=== PATIENT | female | born 1995 | race Caucasian/White ===

== ENCOUNTER → 2023-09-11 | Outpatient (CLI) | payer OTHER, SELFPAY ==
[2023-09-12 22:07] LABS: Chlamydia By Nucleic Acid AMP Negative (Negative); Gonococcus By Nucleic Acid AMP Negative (Negative)
[2023-09-13 23:02] LABS: HPV Reflexed? NOT INDICATED
== END | disposition home or self-care (01) ==
LOC: LABSPEC 11:31
PROVIDERS: Referring Provider Registered Nurse; Visit Provider Registered Nurse
DX: Z34.90 Encounter for supervision of normal pregnancy, unspecified, unspecified trimester (principal)
CPT/HCPCS: 87086; 87088; 87491; 87591; 88175; G0145

== ENCOUNTER → 2023-09-20 | Outpatient (CLI) | payer OTHER, SELFPAY ==
[2023-09-20 12:12] LABS: Absolute Lymphocyte Count 2.64 X10^3/uL (0.83-4.51); Absolute Neutrophil Count 6.4 X10^3/uL (2.0-7.7); Basophil# 0.04 X10^3/uL; Basophil% 0.4 % (0-1); Eosinophil# 0.05 X10^3/uL; Eosinophils% 0.5 % (0-5); Hematocrit 37.8 % (37-47); Hemoglobin 13.1 g/dL (12.0-15.0); Lymphocyte # 2.64 X10^3/ul (0.83-4.51); Lymphocyte % 26.6 % (19-41); Mean Corp Hgb Conc 34.7 g/dL (32-36); Mean Corpuscular Hgb 33.6 pg (27.0-32.0); Mean Corpuscular Volume 96.9 fL (81-99); Mean Platelet Vol. 12.2 fl (6.2-12.0); Monocyte# 0.73 X10^3/uL; Monocyte% 7.4 % (0-10); NRBC Flagged by Analyzer 0 % (0-5); Neutrophil # 6.44 X10^3/uL (2.7-7.7); Neutrophil % 64.8 % (47-70); Platelet Count 210 K/mm3 (150-450); RBC Distribution Width CV 12.8 % (11.6-14.6); RBC Distribution Width SD 45.2 fl (35.1-43.9); White Blood Count 9.9 K/mm3 (4.4-11.0)
[2023-09-20 12:44] LABS: NATERA MAILED SPECIMEN
[2023-09-20 13:34] LABS: HIV - WCH Non-Reactive (Nonreactive); Hepatitis B Surface Antigen Non-Reactive (Nonreactive); Hepatitis C Antibody Non-Reactive (Nonreactive); Rubella IgG Reactive (Nonreactive); Syphilis Antibodies Non-reactive
[2023-09-21 09:17] LABS: Hemoglobin A1c 4.8 % (3.8-5.6)
== END | disposition home or self-care (01) ==
LOC: LAB 11:39
PROVIDERS: Referring Provider Registered Nurse; Visit Provider Registered Nurse
DX: Z34.90 Encounter for supervision of normal pregnancy, unspecified, unspecified trimester (principal)
CPT/HCPCS: 36415; 83036; 85025; 86703; 86762; 86780; 86803; 86850; 86900; 86901; 87340

== ENCOUNTER → 2023-11-26 | Outpatient (CLI) | payer OTHER, SELFPAY ==
--- OUTSIDE RECORDS SUMMARY | 2023-11-26 20:17 | XMS RPT_ITS | CCD ---
Author Name Unknown Address [address] [place] [address] Organization [facility] Care Team Providers Care Manager Front Office Name Role Phone NO, PHYSICIAN Primary Care Unavailable Katty Zuñiga Unavailable Kalen Denton Unavailable Unavailable Corrie, Ms. Kalen Lala Attending Christiano Zuñiga, Dr. Katty Santos Primary Care Christiano Zuñiga, Dr. Katty Santos Primary Care Christiano Denton, Ms. Kalen Lala Attending Christiano Denton, Ms. Kalen Lala Attending Christiano Zuñiga, Dr. Katty Santos Primary Care Kenji Membreno Primary Care Physician Kenji Merlos Attending Unavailable Kenij Merlos Attending Unavailable Kenji Merlos Attending Unavailable MANUELITO BARNARD Referring Unavailable MANUELITO BARNARD Attending Unavailable Medications Current Medications Medication Drug Class(es) Dates Sig (Normalized) Sig (Original) benzoyl peroxide 0.05 mg/mg / clindamycin 0.01 mg/mg topical gel (2 sources) Lincosamide Antibacterial Start: 11-26-2022 benzoyl peroxide-clindamyc in topical gel 1 alicia, Topical, BID, 25 gram, Refill(s) 0, [id number], 165, cm, 11/26/22 13:44:00 EST, Height/Length Dosing, 81.5, kg, 11/26/22 13:44:00 EST, Weight Dosing Start Date: 11/26/22 Status: Ordered oseltamivir 75 mg oral capsule (1 source) Neuraminidase Inhibitor Start: 09-18-2022 End: 09-22-2022 take 1 capsule by mouth twice daily oseltamivir 75 mg oral capsule ; 1 cap(s) orally 2 times a day Quantity: 10 Refills: 0 Ordered: 18-Sep-2022 Kalen Denton Start: 18-Sep-2022 End: 22-Sep-2022 Generic Substitution Allowed Comments: Check with your doctor before becoming .Finish all this medication unless otherwise directed by prescriber. Completed/Discontinued Medications Medication Drug Class(es) Dates Sig (Normalized) Sig (Original) [id number] 200 actuat albuterol 0.09 mg/actuat metered dose inhaler (1 source) beta2-Adrenergic Agonist Start: 06-04-2022 take 2 puff(s) by inhalation twice daily as needed for cough albuterol 90 mcg/inh inhalation aerosol ; 2 puff(s) inhaled 2 times a day as needed for cough Quantity: 8.5 Refills: 0 Ordered: 04-Jun-2022 Kalen Denton Start: 04-Jun-2022 Generic Substitution Allowed Comments: For inhalation only.It is very important that you take or use this exactly as directed. Do not skip doses or discontinue unless directed by your doctor.Obtain medical advice before taking any non-prescription drugs as some may affect the action of this medication.Shake well before use. Problems Active Problems Problem Classification Problem Date Documented Da te Episodic/Chronic Anxiety disorders (5 sources) Anxiety disorder; Translations: [Anxiety disorder, unspecified] Onset: 10-18-2022 Chronic Headache; including migraine (4 sources) Headache; including migraine; Translations: [Headache, unspecified] Onset: 06-04-2022 06-04-2022 Past or Other Problems Problem Classification Problem Date Documented Da te Episodic/Chronic Other ear and sense organ disorders (1 source) Otalgia, left ear; Translations: [Otalgia, left ear] Onset: 09-22-2021 Episodic Other upper respiratory disease (2 sources) Nasal congestion; Translations: [Nasal congestion] Onset: 06-04-2022 Episodic Unclassified (3 sources) fx left wrist 02-11-2013 Results Test Name Value Interpretation Reference Range Facil ity Vital Signs Date Time Vital Sign Value Performing Clinician Facility 11-26-2022 13:38-0500 Blood Pressure Location Kenji Merlos [facility] 11-26-2022 13:38-0500 Diastolic blood pressure 68 mm[Hg] Kenji Gudimella [facility] 11-26-2022 13:38-0500 Heart rate 81 /min Kenji Gudimella [facility] 11-26-2022 13:38-0500 Systolic blood pressure 112 mm[Hg] Kenji Gudimella [facility] 10-18-2022 08:40-0500 Blood Pressure Location Kenji Gudimella [facility] 10-18-2022 08:40-0500 Diastolic blood pressure 70 mm[Hg] Kenji Gudimella [facility] 10-18-2022 08:40-0500 Heart rate 65 /min Kenji Gudimella [facility] 10-18-2022 08:40-0500 SaO2% (BldA) [Mass fraction] 97 % Kenji Gudimella [facility] 10-18-2022 08:40-0500 Systolic blood pressure 102 mm[Hg] Kenji Gudimella [facility] 09-18-2022 11:53-0500 Body height 165 cm Katty Zuñiga Other Phone: [facility] 09-18-2022 11:53-0500 Body temperature 98.96 [degF] Katty Zuñiga Other Phone: [facility] 09-18-2022 11:53-0500 Diastolic blood pressure 73 mm[Hg] Katty Zuñiga Other Phone: [facility] 09-18-2022 11:53-0500 Heart rate 99 /min Katty [place] Other Phone: [facility] 09-18-2022 11:53-0500 Respiratory rate 16 /min Katty [place] Other Phone: [facility] 09-18-2022 11:53-0500 SaO2% (BldA) [Mass fraction] 97 % Katty [place] Other Phone: [facility] 09-18-2022 11:53-0500 Systolic blood pressure 104 mm[Hg] Katty Yogesh Other Phone: [facility] 06-04-2022 17:50-0400 Body height 165 cm Katty [place] Other Phone: [facility] 06-04-2022 17:50-0400 Body temperature 98.6 [degF] Katty [place] Other Phone: [facility] 06-04-2022 17:50-0400 Diastolic blood pressure 77 mm[Hg] Katty [place] Other Phone: [facility] 06-04-2022 17:50-0400 Heart rate 81 /min Katty [place] Other Phone: [facility] 06-04-2022 17:50-0400 SaO2% (BldA) [Mass fraction] 98 % Katty Yogesh Other Phone: [facility] 06-04-2022 17:50-0400 Systolic blood pressure 116 mm[Hg] Katty [place] Other Phone: [facility] 09-22-2021 11:52-0500 Body height 165 cm Katty [place] Other Phone: [facility] 09-22-2021 11:52-0500 Body temperature 98.06 [degF] Katty [place] Other Phone: [facility] 09-22-2021 11:52-0500 Diastolic blood pressure 82 mm[Hg] Kattyalise Zuñiga Other Phone: [facility] 09-22-2021 11:52-0500 Heart rate 74 /min Katty Yogesh Other Phone: [facility] 09-22-2021 11:52-0500 SaO2% (BldA) [Mass fraction] 99 % Katty Yogesh Other Phone: [facility] 09-22-2021 11:52-0500 Systolic blood pressure 117 mm[Hg] Katty [place] Other Phone: [facility] Encounters Encounter Date Encounter Type Care Provider Facility Start: 11-21-2023 End: 11-21-2023 ambulatory [facility] Start: 12-31-2022 End: 01-01-2023 ambulatory Kenji Gudimella Facility:[facility] Start: 12-31-2022 End: 12-31-2022 Patient encounter procedure Kenji Gudimella [facility] Start: 11-26-2022 End: 11-27-2022 ambulatory Kenji Gudimella Facility:[facility] Start: 11-26-2022 End: 11-26-2022 Patient encounter procedure Kenji Gudimella [facility] Start: 10-18-2022 End: 10-19-2022 ambulatory Kenji Gudimella Facility:[facility] Start: 10-18-2022 End: 10-18-2022 Patient encounter procedure Kenji Gudimella [facility] Start: 09-18-2022 End: 09-18-2022 Emergency department patient visit Kalen Denton [facility] Start: 06-04-2022 End: 06-04-2022 Emergency department patient visit Kalen Denton [facility] Start: 09-22-2021 End: 09-22-2021 [facility] Start: 03-31-2020 End: 04-04-2020 Patient encounter procedure PHYSICIAN MY [facility] Procedures Date Procedure Procedure Detail Performing Clinician tubes in ear Kenji Gudimella Immunizations Immunization Date Immunization Notes Care Provider [address] 11-18-2020 SARS-CoV-2 (COVID-19 ) mRNA-1273 vaccine Kenji Gudimella [facility] 10-21-2020 SARS-CoV-2 (COVID-19 ) mRNA-1273 vaccine Kenji Gudimella [facility] 05-20-2017 hepatitis A vaccine, adult dosage Kenji Gudimella [facility] 04-27-2015 hepatitis A vaccine, unspecified formulation Kenji Gudimella [facility] 04-27-2015 meningococcal ACWY vaccine, unspecified formulation Kenji Gudimella [facility] 08-25-2012 tetanus toxoid, reduced diphtheria toxoid, and acellular pertussis vaccine, adsorbed Kenji Gudimella [facility] 06-13-2009 meningococcal ACWY vaccine, unspecified formulation Kenji Gudimella [facility] 06-13-2009 varicella virus vaccine Kenji Gudimella [facility] 05-27-2002 DTaP, unspecified formulation Kenji Gudimella [facility] 05-27-2002 measles, mumps and rubella virus vaccine Kenji Gudimella [facility] 05-27-2002 poliovirus vaccine, unspecified formulation Kenji Gudimella [facility] 02-14-1998 varicella virus vaccine Kenji Gudimella [facility] 01-11-1998 DTaP, unspecified formulation Kenji Gudimella [facility] 01-11-1998 Hib, unspecified formulation Kenji Gudimella [facility] 01-11-1998 measles, mumps and rubella virus vaccine Kenji Gudimella [facility] 07-12-1997 DTaP, unspecified formulation Kenji Gudimella [facility] 07-12-1997 hepatitis B vaccine, pediatric or pediatric/adolescent dosage Kenji Gudimella [facility] 07-12-1997 Hib, unspecified formulation Kenji Gudimella [facility] 02-24-1997 DTaP, unspecified formulation Kenji Gudimella [facility] 02-24-1997 Hib, unspecified formulation Eknji Gudimella [facility] 1996 DTaP, unspecified formulation Kenji Gudimella [facility] 1996 hepatitis B vaccine, pediatric or pediatric/adolescent dosage Kenji Gudimella [facility] 1996 Hib, unspecified formulation Kenji Gudimella [facility] 1996 hepatitis B vaccine, pediatric or pediatric/adolescent dosage Kenji Gudimella [facility] NEGATED: Highlighted row has not occurred!11-26-2022 influenza virus vaccine, unspecified formulation Kenji Gudimella [facility] NEGATED: Highlighted row has not occurred!10-18-2022 influenza virus vaccine, unspecified formulation Kenji Gudimella [facility] Payers Date Payer Category Payer Unknown [id number] 1995 Unknown [id number] 1996 Unknown [id number] 1996 Unknown [id number] 1996 Unknown [id number] 1996 Unknown [id number] 1996 Unknown [id number] 1996 Unknown [id number] 1996 Unknown [id number] Unknown [id number] Unknown [employer] [place] Social History Date Type Detail Facility [facility] Tobacco smoking consumption unknown [facility] Start: 10-18-2022 End: 11-26-2022 Tobacco smoking status Never smoked tobacco (finding) [facility] Tobacco smoking status Never [facility] Sex Assigned At Female [facility] Functional Status Date Assessment Result Facility 11-26-2022 Functional Status N/A [facility] 10-18-2022 Functional Status N/A [facility] Hospital Discharge instructions 11-26-2022 Note Date & Type Note Facility 11-26-2022 Hospital Discharg e instructions Patient Education 11/26/2022 14:42:14 BMI for Adults BMI for Adults Body mass index (BMI) is a number that is calculated from a person's weight and height. BMI may help to estimate how much of a person's weight is composed of fat. BMI can help identify those who may be at higher risk for certain medical problems. How is BMI used with adults? BMI is used as a screening tool to identify possible weight problems. It is used to check whether a person is obese, overweight, healthy weight, or underweight. How is BMI calculated? BMI measures your weight and compares it to your height. This can be done either in [place] ([place] or metric measurements. Note that charts are available to help you find your BMI quickly and easily without having to do these calculations yourself. To calculate your BMI in [place] measurements, your health care provider will: 1.Measure your weight in pounds (lb). 2.Multiply the number of pounds by 703. For example, for a person who weighs 180 lb, multiply that number by 703, which equals 126,540. 3.Measure your height in inches (in). Then multiply that number by itself to get a measurement called inches squared. For example, for a person who is 70 in tall, the inches squared measurement is 70 in x 70 in, which equals 4900 inches squared. 4.Divide the total from Step 2 (number of lb x 703) by the total from Step 3 (inches squared): 126,540 4900 = 25.8. This is your BMI. To calculate your BMI in metric measurements, your health care provider will: 1.Measure your weight in kilograms (kg). 2.Measure your height in meters (m). Then multiply that number by itself to get a measurement called meters squared. For example, for a person who is 1.75 m tall, the meters squared measurement is 1.75 m x 1.75 m, which is equal to 3.1 meters squared. 3.Divide the number of kilograms (your weight) by the meters squared number. In this example: 70 3.1 = 22.6. This is your BMI. How is BMI interpreted? To interpret your results, your health care provider will use BMI charts to identify whether you are underweight, normal weight, overweight, or obese. The following guidelines will be used: Underweight: BMI less than 18.5. Normal weight: BMI between 18.5 and 24.9. Overweight: BMI between 25 and 29.9. Obese: BMI of 30 and above. Please note: Weight includes both fat and muscle, so someone with a muscular build, such as an athlete, may have a BMI that is higher than 24.9. In cases like these, BMI is not an accurate measure of body fat. To determine if excess body fat is the cause of a BMI of 25 or higher, further assessments may need to be done by a health care provider. BMI is usually interpreted in the same way for men and women. Why is BMI a useful tool? BMI is useful in two ways: Identifying a weight problem that may be related to a medical condition, or that may increase the risk for medical problems. Promoting lifestyle and diet changes in order to reach a healthy weight. Summary Body mass index (BMI) is a number that is calculated from a person's weight and height. BMI may help to estimate how much of a person's weight is composed of fat. BMI can help identify those who may be at higher risk for certain medical problems. BMI can be measured using [place] measurements or metric measurements. To interpret your results, your health care provider will use BMI charts to identify whether you are underweight, normal weight, overweight, or obese. This information is not intended to replace advice given to you by your health care provider. Make sure you discuss any questions you have with your health care provider. Document Released: 06/11/2005 Document Revised: 09/12/2018 Document Reviewed: 08/13/2018 [employer] Patient Education 2020 [employer]. [facility] [place] Evaluation + Plan note Note Date & Type Note Facility Evaluation + Plan note Future Appointments Appointment Date:11/26/2022 01:40:00 PM Scheduled Provider:Kenji Merlos MD Location:[facility] Appointment Type: Open [facility] Evaluation + Plan note Note Date & Type Note Facility Evaluation + Plan note Future Appointments Appointment Date:12/31/2022 09:00:00 AM Scheduled Provider:Kenji Merlos MD Location:[facility] Appointment Type:[facility] Hospital course Narrative Note Date & Type Note Facility Hospital course Narrative No data available for this section [facility] Hospital Discharge instructions Note Date & Type Note Facility Hospital Discharge instructions No data available for this section [facility] Progress note Note Date & Type Note Facility Progress note No data available for this section [facility] Summary Purpose Family History No Family History Records FoundNo Family History Records FoundNo Family History Records FoundNo Family History Records FoundNo Family History Records Found Advance Directives No Advanced Directives Records FoundNo Advanced Directives Records FoundNo Advanced Directives Records FoundNo Advanced Directives Records FoundNo Advanced Directives Records Found Additional Source Comments INFORMATION SOURCE (unrecogn ized section and content) DATE CREATED AUTHOR AUTHOR'S ORGANIZ ATION 09/19/2022 [facility] DATE CREATED AUTHOR AUTHOR'S ORGANIZ ATION 09/19/2022 [facility] DATE CREATED AUTHOR AUTHOR'S ORGANIZ ATION 01/01/2023 [facility] DATE CREATED AUTHOR AUTHOR'S ORGANIZ ATION 11/23/2023 [facility] <item><item><item> Privacy Markings (unrecogniz ed section and content) Section Author: Maricruz Block PROHIBITION ON REDISCLOSURE OF CONFIDENTIAL INFORMATION This notice accompanies a disclosure of information concerning a client made to you with the consent of such client. Section Author: Maricruz Block PROHIBITION ON REDISCLOSURE OF CONFIDENTIAL INFORMATION This notice accompanies a disclosure of information concerning a client made to you with the consent of such client. Section Author: Maricruz Block PROHIBITION ON REDISCLOSURE OF CONFIDENTIAL INFORMATION This notice accompanies a disclosure of information concerning a client made to you with the consent of such client. Patient Care team informatio n (unrecognized section and content) Personnel Name: Kenji Merlos MD Address: Address: [address] [place] [address] Personnel Name: Kenji Merlos MD Address: Address: [address] [place] [address] Personnel Name: Kenji Merlos MD Address: Address: [address] [place] [address] FOR RECORDS PERTAINING TO PATIENTS WHO ARE OR HAVE BEEN ENROLLED IN A CHEMICAL DEPENDENCY/SUBSTANCEABUSE PROGRAM, SOME INFORMATION MAY BE OMITTED. This clinical summary was aggregated from multiple sources. Caution should be exercised in using it in the provision of clinical care. This summary normalizes information from multiple sources, and as a consequence, information in this document may materially change the coding, format and clinical context of patient data. In addition, data may be omitted in some cases. CLINICAL DECISIONS SHOULD BE BASED ON THE PRIMARY CLINICAL RECORDS. [facility] [employer] [facility]. provides no warranty or guarantee of the accuracy or completeness of information in this document.
== END | disposition home or self-care (01) ==
PROVIDERS: Referring Provider Obstetrics & Gynecology; Visit Provider Obstetrics & Gynecology
DX: Z36.9 Encounter for antenatal screening, unspecified (principal)
CPT/HCPCS: 36415

== ENCOUNTER 2024-01-15 15:03 | Outpatient (CLI) | payer OTHER, SELFPAY ==
[2024-01-15 15:34] LABS: Absolute Lymphocyte Count 2.55 X10^3/uL (0.83-4.51); Absolute Neutrophil Count 8.3 X10^3/uL (2.0-7.7); Basophil# 0.05 X10^3/uL; Basophil% 0.4 % (0-1); Eosinophil# 0.07 X10^3/uL; Eosinophils% 0.6 % (0-5); Hematocrit 35.1 % (37-47); Hemoglobin 11.9 g/dL (12.0-15.0); Lymphocyte # 2.55 X10^3/ul (0.83-4.51); Lymphocyte % 21.2 % (19-41); Mean Corp Hgb Conc 33.9 g/dL (32-36); Mean Corpuscular Hgb 32.8 pg (27.0-32.0); Mean Corpuscular Volume 96.7 fL (81-99); Mean Platelet Vol. 11.8 fl (6.2-12.0); Monocyte# 0.99 X10^3/uL; Monocyte% 8.2 % (0-10); NRBC Flagged by Analyzer 0 % (0-5); Neutrophil % 68.9 % (47-70); Platelet Count 207 K/mm3 (150-450); RBC Distribution Width CV 12.5 % (11.6-14.6); RBC Distribution Width SD 44.3 fl (35.1-43.9); Red Blood Count 3.63 M/mm3 (4.2-5.4); White Blood Count 12.1 K/mm3 (4.4-11.0)
[2024-01-15 16:02] LABS: Glucose Challenge Gest 1H 50g 104 mg/dL (70-140)
[2024-01-15 16:33] LABS: HIV - WCH Non-Reactive (Nonreactive); Syphilis Antibodies Non-reactive
== END 2024-01-15 23:59 | disposition home or self-care (01) ==
PROVIDERS: Referring Provider Obstetrics & Gynecology; Visit Provider Obstetrics & Gynecology
DX: O09.90 Supervision of high risk pregnancy, unspecified, unspecified trimester (principal); Z13.1 Encounter for screening for diabetes mellitus; Z3A.00 Weeks of gestation of pregnancy not specified
CPT/HCPCS: 36415; 82950; 85025; 86703; 86780

== ENCOUNTER 2024-03-14 06:38 | Inpatient (IN) | payer OTHER, SELFPAY ==
[2024-03-14] VITALS (26 sets, daily range): BP systolic 71–117; BP diastolic 57–68; PULSE 53–76; RESP 12–18; TEMP 36.2–37.1; O2SAT 91–100; BMI 35.5
--- NOTE | 2024-03-14 06:44 | HP.PCM.OB_ITS ---
HPI - General General Date of Admission: 03/14/24 HPI Narrative MIKI RUCKER, is a 28 F who presents with contractions and spotting, upon admisison she was found to have a category II-III tracing with intermittent lates absent to minimal variability no accelerations or scalp stimulation. Maternal Data Information ELLEN Calculator Estimated Delivery Date Method Current WG Current Estimate 04/11/24 LMP (Certain) 36w 0d PFSH PFSH Home Medications ?Medication ?Instructions ?Recorded ?Last Taken ?Type multivit-min no.71-iron fum 28 1 cap PO 08/30/23 03/13/24 08:32 History mg-folate no.1 1 mg-dha 300 mg 1 cap capsule (PNV-[place]) sertraline 25 mg tablet (Zoloft) 25 mg PO DAILY #30 tabs 02/03/24 Unknown Rx clindamycin phosphate 1 % topical 1 applic topical DAILY PRN 02/11/24 Unknown History gel choline 600 mg tablet mg PO 03/14/24 03/13/24 08:33 History 600 mg Allergy/AdvReac Type Severity Reaction Status Date / Time No Known Allergies Allergy Verified 03/14/24 06:31 Family History Mother , initial dx 45. returned at 50 Breast cancer, Onset Age: 45 genetic testing was negative Father Diabetes Hypertension Surgical History [place] teeth extracted Social History adopted: No household members: spouse current occupational status: employed current occupation: Teacher pets and animals: Yes pets and animals: dog(s) history of recent travel: Yes ([place], [place]) out of country: Yes sexually active: Yes Smoking Status: Never smoker alcohol intake: current alcohol intake frequency: holidays/special occasions only details: Not while substance use type: does not use diet: other well-balanced diet: daily or most days caffeine: No eating out: 1-3 times/week during the past year weight has: remained stable what type of physical activity do you participate in: walking and weight training frequency: 3-4 times per week duration: 30-45 minutes/day rose mary/jehovah's witness: Gnosticist seatbelt use: always do you feel safe at home: Yes additional social history: Solo- teacher History 1 Elective abortions Hx Para 0 Spontaneous abortions Hx # Term Pregnancies Ectopic pregnancies Hx # Pregnancies Multiple births # of living children Visit Details Expected Delivery Route/Plan Labor Preferences- CB/BF classes: enc labor support person: Solo labor intervention preferences: [] pain management options preferred: epidural ok if she requests. cut cord/dad catch: no : yes PP control planned: discussed discussed possible routes of delivery and associated risks: [] special requests: [] Plans Covid status: [] Flu vaccine: no Tdap vaccine: given Rhogam: na LARC form signed: yes movement and labor precautions reviewed. Problem list reviewed and updated with the most current plan of care details and appropriate orders placed. Relevant counseling for the gestational age provided. Continue routine care and follow up unless otherwise noted in visit notes/problem list details OB Flowsheet Initial Weight: Not Recorded Date -?-?-?-?-?-?-?-?-?-?-?-?- EGA Weight BP Urine Prot -?-?-?-?-?-?-?-?-?-?-?-?- Glucose FHR FuHt Pres Dilation -?-?-?-?-?-?-?-?-?-?-?-?- Effaced St Visit Note 09/11/23 -?-?-?-?-?-?-?-?-?-?-?-?- 9w 4d 190 lb 113/74 -?-?-?-?-?-?-?-?-?-?-?-?- 171 -?-?-?--?-?-?-?-?-?-?-?-?- LC- crl con with LMP. desires genetic screening. 10/01/23 -?-?-?-?-?-?-?-?-?-?-?-?- 12w 3d 190 lb 8 oz 125/82 Nega tive -?-?-?-?-?-?-?-?-?-?--?-?- Negative 168 -?-?-?-?-?-?-?-?-?-?-?-?- MH-Had spotting 4 days ago and resolved same day. None since. Brief US confirmed live IUP. 11/01/23 -?-?-?-?-?-?-?-?-?-?-?-?- 16w 6d 199 lb 2 oz 113/74 Nega tive -?-?-?-?-?-?-?-?-?-?-?-?- Negative 150 -?-?-?-?-?-?-?-?-?-?-?-?- JV- no cramping or spotting. desires a dula and states that her insurance will cover this if there is a letter of necessity. Not sure what the necessity is. pt will give us more info later. 11/26/23 -?-?-?-?-?-?-?-?-?-?-?-?- 20w 3d 199 lb 108/73 Negative -?-?-?-?-?-?-?-?-?-?-?-?- Negative 145 -?-?-?-?-?-?-?-?-?-?-?-?- SM- no vb lof go od fm no regular ctx 12/25/23 -?-?-?-?-?-?-?-?-?-?-?-?- 24w 4d 205 lb 101/67 Negative -?-?-?-?-?-?-?-?-?-?-?-?- Negative 147 24 -?-?-?-?-?-?-?-?-?-?-?-?- JV- no lof, vagi nal bleeding, and ++ fm. naming baby Edy Connell 01/15/24 -?-?-?-?-?-?-?-?-?-?-?-?- 27w 4d 208 lb 100/66 Negative -?-?-?-?-?-?-?-?-?-?-?-?- Negative 145 28 -?-?-?-?-?-?-?-?-?-?-?-?- MH-No VB, LOF. G ood FM. Denies concerns. Larc 01/30/24 -?-?-?-?-?-?-?-?-?-?-?-?- 29w 5d 208 lb 105/66 -?-?-?-?-?-?-?-?-?-?-?-?- 135 30 -?-?-?-?-?-?-?-?-?-?-?-?- KW- no vb/lof/ct x. good fm. Tdap today. discussed work related stress and possibly starting SSRI again. 02/11/24 -?-?-?-?-?-?-?-?-?-?-?-?- 31w 3d 210 lb 110/70 Negative -?-?-?-?-?-?-?-?-?-?-?-?- Negative 130 32 -?-?-?-?-?-?-?-?-?-?-?-?- kw- no vb/lof/ct x. good fm. did not start SSRI- decreased stress at work and feeling better. 02/28/24 -?-?-?-?-?-?-?-?-?-?-?-?- 33w 6d 211 lb 211 lb 105/70 -?-?-?-?-?-?-?-?-?-?-?-?- 125 35 -?-?-?-?-?-?-?-?-?-?-?-?- SM- no vb lof go od fm no regular ctx 03/10/24 -?-?-?-?-?-?-?-?-?-?-?-?- 35w 3d 212 lb 4 oz 110/64 Nega tive -?-?-?-?-?-?-?-?-?-?-?-?- Negative 132 38 -?-?-?-?-?-?-?-?-?-?-?-?- MH-NO VB, LOF. G ood FM. LGA-US ordered NST FHR Rate Baby A Baseline: 150 Variability:: Absent and Minimal Accelerations:: None Decelerations:: Late (intermittent) NST Reactive:: Non-Reactive FHR Category:: Category II and Category III Uterine Activity:: q 2-3 ROS Constitutional Constitutional: Reports systems reviewed and no addt'l complaints, except as documented Eyes Eyes: Denies change in vision ENT HEENT: Reports systems reviewed and no addt'l complaints, except as documented; Denies headache(s) Cardiovascular Cardiovascular: Reports systems reviewed and no addt'l complaints, except as documented; Denies chest pain or dyspnea Respiratory/Chest Respiratory/Chest: Reports systems reviewed and no addt'l complaints, except as documented Gastrointestinal Gastrointestinal: Reports systems reviewed and no addt'l complaints, except as documented; Denies abdominal pain Genitourinary Genitourinary: Reports systems reviewed and no addt'l complaints, except as documented, contractions Details: present (irregular) and movement Details: present; Denies dysuria or genital lesions Musculoskeletal Musculoskeletal: Reports systems reviewed and no addt'l complaints, except as documented Neurologic Neurologic: Reports systems reviewed and no addt'l complaints, except as documented Endocrine Endocrinology: Reports systems reviewed and no addt'l complaints, except as documented Vital Signs Vital Signs Vital Signs: 03/14/24 06:24 03/14/24 06:24 03/14/24 06:24 Temperature Temperature Source Temporal Pulse Rate 67 Respiratory Rate Blood Pressure BP Systolic BP Diastolic Pulse Ox 100 03/14/24 06:24 03/14/24 06:24 03/14/24 06:24 Temperature 98.5 F Temperature Source Pulse Rate Respiratory Rate 16 Blood Pressure BP Systolic BP Diastolic Pulse Ox 100 03/14/24 06:25 03/14/24 06:25 Temperature Temperature Source Pulse Rate 67 Respiratory Rate Blood Pressure 117/66 BP Systolic 117 BP Diastolic 66 Pulse Ox Weight Weight: 213 lb 8 oz Body Mass Index (BMI) 35.5 Physical Exam Const alert, oriented x3, no apparent distress and healthy appearing HEENT normocephalic and moist oral mucous membranes Head and Scalp: atraumatic Neck full ROM, no lymphadenopathy, supple and thyroid normal General: trachea midline Lymph Lymphatic: no lymphadenopathy noted Chest inspection of chest normal Resp normal respiratory effort Cardio regular rate GI normal to inspection, nondistended, normoactive bowel sounds, soft to palpation and non-tender Inspection: gravid external exam normal Manual OB Exam: estimated gestational size appropriate, presentation cephalic, dilated, effaced and station Extremity normal to inspection General Extremity: Negative for edema Skin no rashes or lesions noted Neuro no focal motor deficits and deep tendon reflexes 2+ bilaterally Motor Exam: strength 5/5 throughout and clonus absent Psych mental status grossly normal Labs Labs Labs: Blood Type O POSITIVE Antibody Screen NEGATIVE Hct 36.3 % (37-47) L Hgb 11.9 g/dL (12.0-15.0) L Syphilis Total Ab Non-reactive Rubella IgG Antibody Reactive (Nonreactive) Hep Bs Antigen Non-Reactive (Nonreactive) Hepatitis C Antibody Non-Reactive (Nonreactive) Chlamydia DNA (VERENA) Negative (Negative) N.gonorrhoeae DNA (VERENA) Negative (Negative) HIV 1&2 Antibody Non-Reactive (Nonreactive) Glucose 1 Hr 50 gm 104 mg/dL (70-140) Miscellaneous Test Assessment & Plan (1) LGA (large for gestational age) fetus: COMMENT: Growth US ordered (2) FH: breast cancer: COMMENT: mother-. genetic testing was negative for mother and pt (3) Depression: QUALIFIERS: Depression Type: unspecified Qualified Code(s): F32.A - Depression, unspecified COMMENT: Stable, not taking zoloft. encouraged counseling (4) Supervision of high-risk : QUALIFIERS: Trimester: third trimester Qualified Code(s): O09.93 - Supervision of high risk , unspecified, third trimester COMMENT: [id number], ELLEN 04/11/24 boy Edy Solo (5) : QUALIFIERS: Weeks of gestation: 35 weeks Qualified Code(s): Z3A.35 - 35 weeks gestation of COMMENT: low risk NIPT, declined carrier and ordered ntd screen. nl anatomy & consistent ELLEN (6) Category III heart rate tracing during labor and delivery: PLAN: Plan fluids given, cbc drawn, arom thick meconium fluid and internals placed, still no acceleration, recommend proceeding with immediate delivery.
[2024-03-14] MEDS: LACTATED RINGERS 500 ML 999 ML IV (06:45)
[2024-03-14 06:57] LABS: Mucous, Urine 0 SEEN /hpf (<or=2+)
[2024-03-14 07:02] LABS: Absolute Lymphocyte Count 2.46 X10^3/uL (0.83-4.51); Absolute Neutrophil Count 6.7 X10^3/uL (2.0-7.7); Basophil# 0.05 X10^3/uL; Basophil% 0.5 % (0-1); Eosinophil# 0.07 X10^3/uL; Eosinophils% 0.7 % (0-5); Hematocrit 36.3 % (37-47); Hemoglobin 11.9 g/dL (12.0-15.0); Lymphocyte # 2.46 X10^3/ul (0.83-4.51); Lymphocyte % 23.5 % (19-41); Mean Corp Hgb Conc 32.8 g/dL (32-36); Mean Corpuscular Hgb 31.4 pg (27.0-32.0); Mean Corpuscular Volume 95.8 fL (81-99); Mean Platelet Vol. 12.7 fl (6.2-12.0); Monocyte# 1.09 X10^3/uL; Monocyte% 10.4 % (0-10); NRBC Flagged by Analyzer 0 % (0-5); Platelet Count 187 K/mm3 (150-450); RBC Distribution Width CV 12.7 % (11.6-14.6); RBC Distribution Width SD 43.8 fl (35.1-43.9); Red Blood Count 3.79 M/mm3 (4.2-5.4); White Blood Count 10.5 K/mm3 (4.4-11.0)
[2024-03-14 07:06] LABS: Partial Thromboplast Time 30.4 Seconds (24.1-36.2); Prothrombin Time (Protime)PT. 13.1 SECONDS (11.7-14.9)
[2024-03-14 07:08] LABS: Color, Urine Yellow (Yellow); Glucose, Dipstick Normal (Normal); Ketone-Dipstick Negative (Negative); Leukocyte Esterase-Dipstick 500 /ul (Negative); Nitrite-Dipstick Negative (Negative); Occult Blood-Urine 250 /ul (Negative); Protein-Dipstick Negative (Negative); Specific Gravity, Urine 1.015 (1.002-1.030); Urine Bilirubin Dipstick Negative (Negative); Urine Clarity Clear (Clear); Urine Urobilinogen Normal (Normal)
[2024-03-14 07:13] LABS: Bacteria RARE /hpf (None Seen); Red Blood Cells-Urine 0-5 SEEN /hpf (0-5); Squamous Epithelial Cells - UA 5-10 SEEN /hpf (5-10); White Blood Cells 0-5 SEEN /hpf (0-5)
[2024-03-14] MEDS: Cefazolin 2 GM in 0.9% Normal Saline (100mL Bag) 100 ML IV (07:14)
--- NOTE | 2024-03-14 07:22 | OP.PCM_ITS ---
Assessment & Plan (1) Category III heart rate tracing during labor and delivery: (2) LGA (large for gestational age) fetus: COMMENT: Growth US ordered (3) FH: breast cancer: COMMENT: mother-. genetic testing was negative for mother and pt (4) Depression: QUALIFIERS: Depression Type: unspecified Qualified Code(s): F32.A - Depression, unspecified COMMENT: Stable, not taking zoloft. encouraged counseling (5) Supervision of high-risk : QUALIFIERS: Trimester: third trimester Qualified Code(s): O09.93 - Supervision of high risk , unspecified, third trimester COMMENT: [id number], ELLEN 04/11/24 marjorie Snow Solo (6) : QUALIFIERS: Weeks of gestation: 35 weeks Qualified Code(s): Z3A.35 - 35 weeks gestation of COMMENT: low risk NIPT, declined carrier and ordered ntd screen. nl anatomy & consistent ELLEN (7) delivery delivered: COMMENT: SM 36 PTL cat III tracing marjorie Snow Maternal Data Information ELLEN Calculator Estimated Delivery Date Method Current WG Current Estimate 04/11/24 LMP (Certain) 36w 0d Final ELLEN Source: LMP Details Operative Information Pre-Operative Diagnosis: see a/p diagnoses Post-Operative Diagnosis: same Indications Narrative: surgeon: April Garcia MD Procedure Type: low transverse Special Medications: none Drain: Álvarez to straight drain Fluids Replaced: crystalloid Findings Description of Procedure: Patient presented to triage for contractions at 36 weeks with small amount of vaginal bleeding and had recurrent late decelerations with minimal to absent variability despite IV fluids and position changes. Upon rupture membranes patient was found be 1 to 2 cm with thick meconium internals were placed and no scalp stimulation was successful. Decision was made to proceed with immediate section. The patient was placed in the dorsal supine position with leftward tilt. Patient was prepped and draped in the normal sterile fashion. Pfannenstiel skin incision was made with the scalpel and carried through to the underlying layer of fascia with the scalpel. Fascia was nicked in the midline and the incision extended laterally. The rectus bellies were dissected off superiorly and inferiorly with out complication both sharply and bluntly. The peritoneum was entered digitally. The incision was stretched and a low transverse uterine incision was made with the scalpel. The infant's head was delivered atraumatically followed by the anterior and posterior shoulders without complication the rest of the delivered. The cord was clamped and cut and the infant was handed off to awaiting nurse. The placenta was delivered spontaneously immediately following and was noted to be intact and have a three- vessel cord. The uterus was exteriorized cleared of all clots and debris, and the incision was closed in a single layer closure using #1 Monocryl. The ovaries and fallopian tubes were noted to be within normal limits. The uterus was returned to the maternal abdomen and gutters were cleared of all clots and debris. The peritoneum was closed with 3-0 Monocryl in a running fashion. Gloves were changed prior to fascial closure. Fascia was closed with 0 PDS in a running fashion. Subcutaneous tissue was copiously irrigated and the skin was closed with 3-0 Monocryl in a subcuticular fashion. Mepilex dressing was applied without complication. Patient was taken to recovery in stable condition. It was discussed with the patient that based on the clinical information obtained during this encounter, combined with her history, at this time I would recommend vaginal or for future deliveries if further pregnancies are desired. Placental Delivery Description: Spontaneous Placenta Disposition: [facility] Cord Vessel Description: 3 Vessels Delayed Cord Clamping: Yes Complications Risks of Surgery Discussed w/Patient: Bleeding, Infection, Need for Future C-Sec tions and Injury to surrounding structure(s) including bowel and bladder Complications: none Admit VTE Documentation VTE Present on Admission: No VTE Mechan Device Prophylaxis: SCD's Procedures Urinary/Genital [id number]: [id number] Delivery [facility]
--- NOTE | 2024-03-14 07:23 | DCINST_ITS ---
Discharge Instructions Diet Discharge Diet: No restrictions Activity Discharge Activity: May Not Drive (for 2 weeks or while taking narcotic pain medications.), May Shower and May Take a Tub Bath (in 7 days) May shower in (days): 0 May resume sexual activity in: 4-6 weeks Weight Bearing Status: Full weight bearing Lifting Restrictions: 20 pounds Dressing / Incision Call your doctor if your incision/area has: Continuous Slow Oozing, Sudden Increased Bleeding, Increased Pain/ Swelling, Increased Redness and Foul Smelling Discharge Call your doctor if you observe: Fever of 101 or Higher and Using more than 1 pad per hour (for 2 hours) Suture Line Care: Avoid Pulling/Pushing and Avoid Pinching/Bending Cleanse incision/area with: Soap & Water and Keep Dressing Clean & Dry Follow Up Care Please Follow Up With: April Garcia MD When: Call [phone] to make an appointment for an incision check in 1-2 weeks. Test Results: Test results from this visit will be discussed in further detail at your follow- up appointment, if applicable. Discharge Plan Admission Admit Date/Time: 03/14/24 06:38 Attending Provider: April Garcia Primary Care Provider: Care Physician,Paty Primary Discharge Orders/Prescriptions Prescriptions: New oxycodone-acetaminophen [Percocet] 5-325 mg tablet 1 tab PO Q6H PRN (Reason: pain) 7 Days Qty: 20 0RF naproxen 500 mg tablet 500 mg PO BID PRN PRN (Reason: Pain) Qty: 30 1RF No Action PNV-[place] 28-1-300 mg capsule 1 cap PO clindamycin phosphate 1 % gel 1 applic topical DAILY PRN choline 600 mg tablet PO sertraline [Zoloft] 25 mg tablet 25 mg PO DAILY Qty: 30 0RF Referrals / Follow Up: Care Physician,No Primary [Primary Care Provider] -
[2024-03-14 08:16] LABS: Syphilis Antibodies Non-reactive
--- NOTE | 2024-03-14 08:26 | NURSING ---
Report given to Keyona in OR at 0755.
[2024-03-14] MEDS: Oxytocin 15 Units/NS 250ml 15 UNITS/250 ML IV.SOLN 83 UNITS IV (09:17)
[2024-03-14] MEDS: Lactated Ringers 1,000 ML 100 ML IV ×2 (09:17→17:22)
[2024-03-14] MEDS: Acetaminophen 500 MG Tablet 1000 MG PO ×3 (09:42→21:34)
[2024-03-14] MEDS: Ketorolac 30 MG/ML Syringe IV ×3 (09:42→21:34)
[2024-03-14] MEDS: Enoxaparin 40 MG/0.4 ML Syringe SC (19:43)
[2024-03-15] VITALS (8 sets, daily range): BP systolic 98–108; BP diastolic 55–73; PULSE 54–73; RESP 16–18; TEMP 36.3–36.7; O2SAT 99–100
[2024-03-15] MEDS: Acetaminophen 500 MG Tablet 1000 MG PO ×4 (03:37→22:51)
[2024-03-15] MEDS: Ketorolac 30 MG/ML Syringe IV (03:38)
[2024-03-15 06:37] LABS: Hemoglobin 10.8 g/dL (12.0-15.0); Mean Corp Hgb Conc 32.7 g/dL (32-36); Mean Corpuscular Hgb 31.5 pg (27.0-32.0); Mean Corpuscular Volume 96.2 fL (81-99); Mean Platelet Vol. 12.8 fl (6.2-12.0); Platelet Count 162 K/mm3 (150-450); Red Blood Count 3.43 M/mm3 (4.2-5.4); White Blood Count 10.4 K/mm3 (4.4-11.0)
--- NOTE | 2024-03-15 08:31 | PCM.PN.OB ---
Subjective Subjective Patient doing well without complaints. Tolerating PO. Ambulating and voiding without difficulty. feeding well. Denies chest pain, shortness of breath, calf pain/swelling, fevers, chills, lightheadedness. Objective Data Objective Data Vital Signs: Vital Signs Temp Pulse Resp BP Pulse Ox O2 Del Method 97.4 F L 65 16 98/73 99 Room Air 03/15/24 04:55 03/15/24 05:44 03/15/24 05:44 03/15/24 04:55 03/15/24 05:44 03/15/24 05:44 Oxygen Delivery Method Room Air Weight: 213 lb 8 oz Body Mass Index (BMI) 35.5 Intake & Output: Intake and Output for Last 24 Hours 03/13/24 03/14/24 03/15/24 23:59 23:59 23:59 Intake Total 2068.33 / 2068.33 1000 / 1000 Output Total 1950 / 1950 1100 / 1100 Balance 118.33 / 118.33 -100 / -100 Lab / Micro Data 03/15/24 06:05 Labs: Laboratory Results - last 24 hr 03/14/24 06:45: Blood Type O POSITIVE, Antibody Screen NEGATIVE 03/15/24 06:05: WBC 10.4, RBC 3.43 L, Hgb 10.8 L, Hct 33.0 L, MCV 96.2, MCH 31.5, MCHC 32.7, RDW Std Deviation 45.0 H, RDW Coeff of Fabio 13.0, Plt Count 162, MPV 12.8 H Micro: Microbiology 03/14/24 06:34 Genital vaginal Group B Streptococcus (PCR) - Final ROS Constitutional Constitutional: Reports systems reviewed and no addt'l complaints, except as documented Cardiovascular Cardiovascular: Reports systems reviewed and no addt'l complaints, except as documented Respiratory/Chest Respiratory/Chest: Reports systems reviewed and no addt'l complaints, except as documented Gastrointestinal Gastrointestinal: Reports systems reviewed and no addt'l complaints, except as documented Physical Exam Const alert, oriented x3 and no apparent distress HEENT Head and Scalp: atraumatic Resp normal respiratory effort GI soft to palpation and non-tender Inspection: incision intact, healing well and drainage (none) Bimanual Exam - Vag & Uterus: uterus non-tender Uterus Palpation: uterus fundus firm (below Umbilicus) Assessment & Plan (1) delivery delivered: COMMENT: SM 36 PTL cat III tracing boy Edy PLAN: Plan s/p LTCS PPD # 1 1. routine post care 2. breast feeding- support given 3. rh positive 4. rubella immune
[2024-03-15] MEDS: Senna/Docusate Sodium 1 Tablet PO (10:02)
[2024-03-15] MEDS: Naproxen 500 MG Tablet PO ×2 (11:33→20:02)
[2024-03-15] MEDS: oxyCODONE 5 MG Tablet PO (17:39)
[2024-03-15] MEDS: Enoxaparin 40 MG/0.4 ML Syringe SC (20:58)
[2024-03-16 02:55] VITALS: BP 125/65; PULSE 63; RESP 16; TEMP 36.2; O2SAT 100
[2024-03-16] MEDS: Naproxen 500 MG Tablet PO ×2 (04:58→13:42)
[2024-03-16] MEDS: Acetaminophen 500 MG Tablet 1000 MG PO ×3 (04:58→19:06)
[2024-03-16 09:00] VITALS: BP 122/73; PULSE 70; RESP 16; TEMP 36.6; O2SAT 100
[2024-03-16] MEDS: Senna/Docusate Sodium 1 Tablet PO (09:46)
[2024-03-16 13:00] VITALS: BP 118/71; PULSE 69; RESP 16; TEMP 36.8; O2SAT 99
[2024-03-16 17:00] VITALS: BP 113/75; PULSE 74; RESP 16; TEMP 36.8; O2SAT 98
--- NOTE | 2024-03-16 17:05 | PCM.PN.OB ---
Subjective Subjective Patient doing well without complaints. Tolerating PO. Ambulating and voiding without difficulty. feeding well. Denies chest pain, shortness of breath, calf pain/swelling, fevers, chills, lightheadedness. Objective Data Objective Data Vital Signs: Vital Signs Temp Pulse Resp BP Pulse Ox O2 Del Method 98.3 F 69 16 118/71 99 Room Air 03/16/24 13:00 03/16/24 13:00 03/16/24 13:00 03/16/24 13:00 03/16/24 13:00 03/16/24 13:00 Oxygen Delivery Method Room Air Weight: 213 lb 8 oz Body Mass Index (BMI) 35.5 Intake & Output: Intake and Output for Last 24 Hours 03/14/24 03/15/24 03/16/24 23:59 23:59 23:59 Intake Total 2068.33 / 2068.33 1000 / 1000 Output Total 1950 / 1950 1100 / 1100 Balance 118.33 / 118.33 -100 / -100 Lab / Micro Data 03/15/24 06:05 Micro: Microbiology 03/14/24 06:34 Genital vaginal Group B Streptococcus (PCR) - Final ROS Constitutional Constitutional: Reports systems reviewed and no addt'l complaints, except as documented Cardiovascular Cardiovascular: Reports systems reviewed and no addt'l complaints, except as documented Respiratory/Chest Respiratory/Chest: Reports systems reviewed and no addt'l complaints, except as documented Gastrointestinal Gastrointestinal: Reports systems reviewed and no addt'l complaints, except as documented Physical Exam Const alert, oriented x3 and no apparent distress HEENT Head and Scalp: atraumatic Resp normal respiratory effort GI soft to palpation and non-tender Inspection: incision intact, healing well and drainage (none) Bimanual Exam - Vag & Uterus: uterus non-tender Uterus Palpation: uterus fundus firm (below Umbilicus) Assessment & Plan (1) delivery delivered: COMMENT: SM 36 PTL cat III tracing boy Edy PLAN: Plan s/p LTCS PPD # 2 1. routine post care 2. breast feeding- support given 3. rh positive 4. rubella immune
[2024-03-16] MEDS: Enoxaparin 40 MG/0.4 ML Syringe SC (19:06)
--- NOTE | 2024-03-20 12:52 | CASEMGMT ---
Social Work Assessment Labor and Delivery Unit Patient Address:[place] [address] Phone number: [phone] Date of Referral: 03/15/24 Time of Referral:? 2316 Referred By: April Garcia Date of Intervention: ??03/20/24 Time of Intervention:? 1200 Reason for Referral:? hx depression, infant in SCN Sw completed chart review and acknowledges social work consult. Sw presented to bedside and introduced self to mother of baby (GENIE Li) and explained reason for sw involvement. Sw completed psychosocial assessment. History obtained from: medical records, MOB Household composition: Currently residing in the family home is MACO BOGGS and now baby. MOB denies any issues or concerns with current living space. Patient's parent/guardian status:? FLAKITA reports that she and MAOC met using an online dating alicia in 2014. They are and baby is first baby for both parents. No concerns reported of domestic violence or intimate partner violence. ? Medical History: ?FLAKITA is 28 year old female who is 1, parfa 0- now 1 following labor and delivery of . FLAKITA received routine care during with [place]. FLAKITA delivered baby via emergency at 36 weeks gestation on 03/14/24. Baby boy, Edy, was born weighing 5lb 7oz with apgars of 8 and 9 at one and five minutes of life, respectfully. Baby required transfer to Special Care Nursery due to hypoglycemia. FLAKITA is providing breast milk and states that baby will follow up with [facility] in [place]. 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 Supplies:?? parents have obtained all necessary baby supplies, including: car seat, safe sleep space, clothes, diapers and wipes. Childcare/Caregiver(s):?MOB will be the primary caregiver to baby, when both parents are working they have arrangements with a childcare center. Transportation:?? No barriers Programs/Agencies Involved: ???no linage to community agencies for any financially assistance at this time. Children Services/Legal Issues:??? No history of involvement, no issues or concerns warranting referral to be made at this time. Behavioral Health Issues: ??Mental Health History:?FOB and MOB have both been diagnosed with depression following the loss of a parent. MOB states that neither parent is prescribed any medications to help with their mental health status. Parents have come a long way and have a lot of strong family and friends who are supportive. ?? Substance Use History:?? MOB denies substance use prior to and during . Family History:?MOB denies family history of substance use and significant mental health diagnoses. ? Drug Screens: ?No drug screens observed in chart review. ? Family/Social Stressors:? MOB denies any stressors or concerns at this time. MOB states that it was challenging at first when baby needed to be admitted to the SCN, however they have adapted well and are doing really good. Support Systems: MOB states that both sets of grandparents are their biggest supports. Depression/Shaken Baby/Safe Sleeping:? Sw educated MOB on signs and symptoms of baby blues and depression. MOB expressed understanding. MOB states that if she were to struggle FOB would be able to recognize that and would know how to help and support her. Sw educated MOB on shaken baby prevention and ABCs of safe sleep. MOB expressed understanding. ASSESSMENT:? Baby is still admitted to SCN for hypoglycemia, however has made medical progress and may be able to be discharged later today. MOB and FOB have been at bedside every day and active in appropriate hands on care of baby. MOB talkative and receptive to sw involvement and support. MOB and FOB with history of depression, but feel as though it was mostly situational due to each of them losing a parent back to back to cancer. MOB states that they have a lot of friends and family who are supportive. Parents habe obtained all necessary baby supplies. PLAN:? MOB and baby to be discharged when medically ready. ?No other services requested or indicated. Christopher Contreras, STUDENT AFFAIRS DEAN, [employer]
== END 2024-03-16 19:09 | disposition home or self-care (01) | DRG 788 ==
LOC: OBT 06:45 → WP 06:45
PROVIDERS: Admitting Provider Obstetrics & Gynecology; Visit Provider Obstetrics & Gynecology
DX: O76 Abnormality in fetal heart rate and rhythm complicating labor and delivery (principal); O26.853 Spotting complicating pregnancy, third trimester; Z37.0 Single live birth; O77.0 Labor and delivery complicated by meconium in amniotic fluid; Z79.899 Other long term (current) drug therapy; O36.63X0 Maternal care for excessive fetal growth, third trimester, not applicable or unspecified; Z3A.36 36 weeks gestation of pregnancy
CPT/HCPCS: 59025; 59050; 81001; 85025; 85027; 85610; 85730; 86780; 86850; 86900; 86901; 87081; 87653; 99221; J7120; G0378; J2405